=== PATIENT | male | born 1945 | race Caucasian/White ===

== ENCOUNTER → 2019-09-10 08:53 | Outpatient (CLI) | payer MEDICARE, OTHER, SELFPAY ==
[2019-09-11 23:16] LABS: COVID19 Sendout Not Detected (Not Detect)
== END ==
PROVIDERS: PCP Family Medicine; Visit Provider Physician Assistant
DX: Z01.812 Encounter for preprocedural laboratory examination (principal)
CPT/HCPCS: 87635

== ENCOUNTER 2019-09-13 14:48 | Day surgery (SDC) | payer MEDICARE, OTHER, SELFPAY ==
--- NOTE | 2019-09-13 | PATH_ITS ---
[facility] Accession Number: [id number] . 01 Material submitted: . sigmoid colon - SIGMOID COLON POLYP . 01 Clinical history: . SIGMOID COLON POLYP 2MM X2 . 02 Diagnosis: Sigmoid Colon, Polyp, Biopsy: Tubular adenoma. Hyperplastic polyp. MRV 09/17/2019 0920 Local . 02 Electronically signed: . Sejal Sood MD, Pathologist NPI- [id number] . 01 Gross description: . SIGMOID COLON POLYP: Received in formalin are 2 fragment(s) of deshpande, soft tissue measuring 0.3 x 0.3 x 0.2 cm to 0.3 x 0.3 x 0.2 cm submitted entirely in 1 cassette(s) /QBJ 09/14/2019 0852 Local . 02 Pathologist provided ICD-10: D12.8 . 02 CPT . 436360 Performed at: 01 [facility] [address] [facility], [place], [place] [id number] MD Chacho Branch MD Phone: [phone] Performed at: 02 [facility] [address] [place], [place] [id number] MD Sejal Sood MD Phone: [phone]
--- NOTE | 2019-09-13 12:18 | PM.HP.1 ---
History of Present Illness History of Present Illness Date Patient Seen: 09/13/19 Chief complaint: SDC Narrative: 73 year old male comes in today for consideration of a screening colonoscopy. There have been no lower GI symptoms suggesting disease such as change in bowel habits, bleeding, abdominal pain or anemia. There's been no family history of colon cancer or colon polyps. Overall health issues have been stable, including no major cardiac events for at least 6 weeks. 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 Patient History Family & Social History Family History (Updated 08/06/15 @ 00:00 by CLEMENT Gallo) Brother Diabetes mellitus Father Diabetes mellitus Meds Home Medications and Allergies Home Medications Medication Instructions Recorded Confirmed Type metformin 500 mg tablet,extended See Rx Instructions PO SEE 02/06/18 09/13/19 Rx release 24 hr INSTRUCTIONS #90 tab lisinopril 20 mg PO QDAY #90 tab 03/05/18 09/13/19 Rx atorvastatin 10 mg PO DAILY 09/13/19 09/13/19 History Allergies Allergy/AdvReac Type Severity Reaction Status Date / Time No Known Drug Allergies Allergy Unverified 09/10/19 08:51 Review of Systems Review of Systems ROS: Yes All systems reviewed with the patient and are negative except as otherwise documented Exam Narrative Exam Narrative: GENERAL: Alert and oriented, appearing stated age and in no acute distress. HEENT: Head normocephalic/atraumatic. Pupils equal, round, and reactive to light and accomodation. Extraocular muscles intact. Tympanic membranes clear. Nasal mucosa moist, septum midline. Oral mucosa moist, no lesions. Neck soft and supple, no lymphadenopathy. LUNGS: Clear to ausculation bilaterally, no wheezes, rhonchi or rales. CV: Normal S1 and S2 with regular rate and rhythm, no audible murmurs, rubs or gallops. ABDOMEN: Soft, non-tender, non-distended, no organomegaly. Positive bowel sounds. EXTREMITIES: No clubbing, cyanosis, or edema. NEURO: Cranial nerves II through XII grossly intact, no focal deficits. PSYCH: Alert and oriented x 3. SKIN: No concerning lesions. Assessment & Plan Assessment & Plan narrative: 1. Screening for colon cancer Plan for colonoscopy. The nature and character of the procedure as well as anticipated results were discussed. The possibility of not completing the procedure was also discussed. Possible complications including aspiration pneumonia, bleeding, perforation and reaction to medications either for sedation or preparation and missed lesions were discussed. Questions were answered and proceeding to the colonoscopy was elected. Informed consent signed. I sincerely appreciate the referral allowing me to participate in this patient's care. Please contact me with any questions or concerns.
--- NOTE | 2019-09-13 12:21 | P.OP.ENDO_ITS ---
Operative Date/Time/Diagnoses Date of procedure: 09/13/19 Time of procedure: 16:28 Pre-op diagnosis: 1. Screening for colon cancer Post-op diagnosis: other (1. Sigmoid polyp x2, 2 mm, removed with cold biopsy forceps) Procedure & Clinicians Study performed: Colonoscopy Same procedure as scheduled: Yes Indications: Screening for colon cancer Surgeon: Elizabeth Conroy Procedure Notes SCOAP/Timeout: 16:27 Procedure in detail: ENDOSCOPIST: Elizabeth Conroy MD Sedation RN: Tyesha Barksdale RN Sedation start time: 4:20 p.m. Sedation end time: 4:57 p.m. PROCEDURE: Colonoscopy with biopsy, cold INDICATIONS: 1. Screening for colon cancer MEDICATION: Levsin 0.125 mg sublingual, incremental doses of Versed and fentanyl until appropriate level sedation achieved. ASA CLASS: 2 CECAL WITHDRAWAL TIME: 13 minutes COMPLICATIONS: None. EXTENT OF PROCEDURE: Cecum. QUALITY OF PREP: Good with portions of liquid stool. PROCEDURE: Prior to insertion of the colonoscope, a digital rectal examination was acco mplished with circumferential palpation of the distal rectal mucosa without significant findings being noted. The high-definition colonoscope was passed into the rectum in the usual fashion and advanced over to the cecum without difficulty. The ileocecal valve, appendiceal stoma, and medial wall all could be inspected and no abnormalities were seen. ASCENDING COLON: As the colonoscope was withdrawn, care was taken to expose and inspect the haustral folds and no abnormalities were seen. HEPATIC FLEXURE: Normal no polyps, diverticula or other abnormalities. TRANSVERSE COLON: Normal no polyps, diverticula or other abnormalities. DESCENDING COLON: Normal no polyps, diverticula or other abnormalities. SIGMOID COLON: 2 small polyps were seen, 2 mm in size, removed with cold biopsy forceps. Otherwise, normal, no diverticula or other abnormalities. RECTUM: Normal. J maneuver was produced. There was no significant perianal disease. The J maneuver was broken. The remainder of the rectum was inspected and there was no external hemorrhoid disease. The scope was withdrawn. IMPRESSION: 1. Sigmoid polyps x2, 2 mm, removed with cold biopsy forceps PLAN: 1. Follow-up in clinic status post pathology results. The possibility of a missed lesion including a malignancy has been discussed with the patient previously. Potential alarm symptoms have been discussed and should be reported immediately. Complications: none Post-procedure Recommendations: Will call with biopsy results Follow up: weeks (2) Disposition: PACU
[2019-09-13] MEDS: HYOSCYAMINE 0.125 MG TABLET PO (14:59)
[2019-09-13] MEDS: LACTATED RINGERS 1,000 ML 200 ML IV (14:59)
[2019-09-13 15:05] VITALS: BP 138/85; PULSE 76; RESP 20; TEMP 36.6; O2SAT 98; BMI 23.8
[2019-09-13 17:00] VITALS: BP 122/84; PULSE 68; RESP 14; TEMP 36.3; O2SAT 95
[2019-09-13] MEDS: fentaNYL 250 MCG/5 ML INJ IV (17:00)
[2019-09-13] MEDS: MIDAZOLAM 5 MG/5 ML VIAL IV (17:00)
[2019-09-13 17:05] VITALS: BP 122/89; PULSE 69; RESP 15; O2SAT 96
[2019-09-13 17:20] VITALS: BP 125/83; PULSE 60; RESP 16; TEMP 36.7; O2SAT 95
== END 2019-09-13 17:22 | disposition home or self-care (01) ==
PROVIDERS: PCP Internal Medicine; Referring Provider Student in an Organized Health Care Education/Training Program; Visit Provider Student in an Organized Health Care Education/Training Program
PROC: 0DJD8ZZ Inspection of Lower Intestinal Tract, Via Natural or Artificial Opening Endoscopic (ICD-10-PCS; CPT 45378; principal; 2019-09-13 16:00)
DX: Z12.11 Encounter for screening for malignant neoplasm of colon (principal); E11.9 Type 2 diabetes mellitus without complications; Z79.84 Long term (current) use of oral hypoglycemic drugs; E78.5 Hyperlipidemia, unspecified; I10 Essential (primary) hypertension; J44.9 Chronic obstructive pulmonary disease, unspecified; D12.5 Benign neoplasm of sigmoid colon
CPT/HCPCS: 45380; J2250; J3010

== ENCOUNTER 2019-10-21 14:48 | Emergency (ER) | payer MEDICARE, OTHER, SELFPAY ==
[2019-10-21] VITALS (7 sets, daily range): BP systolic 131–144; BP diastolic 80–84; PULSE 64–72; RESP 16; TEMP 36.4; O2SAT 97–99; BMI 23.7
--- NOTE | 2019-10-21 15:41 | PC.NURSE ---
Patient comes into the ED with complaints of pain in his right inguinal space. He claims that the pain worsens when he is standing or sitting in his car. He says that it goes away when he lays down.
--- NOTE | 2019-10-21 16:08 | ED_ITS ---
HPI - Abdominal Pain General Chief Complaint: Abdominal Pain Stated Complaint: Hernia, Incredible Pain Time Seen by Provider: 10/21/19 15:57 Source: patient Mode of arrival: Ambulatory History of Present Illness HPI narrative: 73-year-old gentleman with history of type 2 diabetes, hypertension, hyperlipidemia complaining of right inguinal area pain. About a month ago he was lifting some heavy would felt tight tearing/pulling feeling in the right inguinal area that seemed to resolve spontaneously. With lifting or Valsalva maneuver she noted some irritation to the area. Over the last weeks it has gotten progressively worse to the point where it is bothering him every time he sits down and is easily relieved by simply laying down and applying pressure to the inguinal crease. He has had normal bowel movements, no blood in his sto ols, no fevers, no abdominal pain, Related Data Home Medications Medication Instructions Recorded Confirmed atorvastatin 10 mg PO DAILY 09/13/19 09/13/19 Previous Rx's Medication Instructions Recorded metformin 500 mg tablet,extended See Rx Instructions PO SEE 02/06/18 release 24 hr INSTRUCTIONS #90 tab lisinopril 20 mg PO QDAY #90 tab 03/05/18 Allergies Allergy/AdvReac Type Severity Reaction Status Date / Time No Known Drug Allergies Allergy Unverified 10/21/19 14:55 Review of Systems Review of Systems Narrative: Pertinent positive and negative findings as per HPI Remainder of review of systems is otherwise unremarkable for Constitutional: Fevers, chills, weakness ENT: No sore throat, neck pain, ear pain CV: Chest pain, palpitations, dyspnea on exertion Respiratory: Cough, wheeze, dyspnea GI: Nausea, vomiting, diarrhea, change in bowel habits, black or bloody stools : Dysuria, hematuria, flank pain Patient History Medical History Essential hypertension (11/22/16) History of detached retina repair (08/06/15) History of right cataract extraction (08/06/15) Mixed hyperlipidemia (11/22/16) Type 2 diabetes mellitus with hyperglycemia, without long-term current use of insulin (08/06/15) Family History Brother Diabetes mellitus Father Diabetes mellitus Social History household members: spouse Smoking Status: Never smoker alcohol intake: never Smoking Status: Never smoker Substance Use Type: marijuana Exam Narrative Exam Narrative: General: Alert appropriate in no acute distress Respiratory: Able to speak in full sentences, no obvious respiratory distress Skin: No obvious rashes, warm and dry Neurologic: Grossly intact no obvious asymmetries or abnormalities Psych, appropriate insight and affect, cooperative Genital: Normal circumcised penis no tenderness in the testicles no left-sided abnormalities or hernia. Mild right-sided tenderness over the doing inguinal ring with small deficit noted no incarcerated hernia. Initial Vital Signs Initial Vital Signs: Vital Signs Temperature 97.6 F 10/21/19 14:51 Pulse Rate 70 10/21/19 14:51 Respiratory Rate 16 10/21/19 14:51 Pulse Oximetry 97 10/21/19 14:51 Course Vital Signs Vital signs: Vital Signs - 8 hr 10/21/19 14:51 10/21/19 15:22 10/21/19 15:23 Temperature 97.6 F Pulse Rate 70 65 Respiratory Rate 16 Blood Pressure 144/84 H Pulse Oximetry 97 99 97 10/21/19 15:30 10/21/19 16:00 Temperature Pulse Rate 72 64 Respiratory Rate Blood Pressure Pulse Oximetry 97 99 MDM - Abdominal Pain MDM Narrative Medical decision making narrative: 73-year-old gentleman with right inguinal hernia, increasing tenderness but no incarceration and is able to be easily reduced if he lays down. Will refer him to [facility] for outpatient evaluation and repair of his right inguinal hernia. He is safe for home discharge Discharge Plan Departure Patient Disposition: Home Clinical Impression: Inguinal hernia Qualifiers: Obstruction and gangrene presence: without obstruction or gangrene Laterality: unilateral Recurrence: non-recurrent Qualified Code(s): K40.90 - Unilateral inguinal hernia, without obstruction or gangrene, not specified as recurrent Instructions: DI for Groin Hernia Activity Restrictions/Additional Instructions: Thank you for coming in today. You have an inguinal hernia. It is absolutely okay to simply push on to get back in and stop the hurting. If you find that it is getting too painful, too annoying or your interested in definitive treatment for it then please follow-up with [facility] to talk about a hernia repair. Typically this surgery is fairly minor and often it is an outpatient procedure. I wish you the best Prescriptions: No Action metformin [Glucophage XR] 500 mg tablet extended release 24 hr See Rx Instructions PO SEE INSTRUCTIONS Qty: 90 RF: 2 lisinopril 20 mg tablet 20 mg PO QDAY Qty: 90 RF: 0 atorvastatin 10 mg tablet 10 mg PO DAILY RF: 0 Referrals: Daryl De Leon MD [Physician] - Firda Dorman ARNP [Primary Care Provider] -
== END 2019-10-21 16:37 | disposition home or self-care (01) ==
PROVIDERS: Emergency Provider Emergency Medicine; PCP Internal Medicine
DX: K40.90 Unilateral inguinal hernia, without obstruction or gangrene, not specified as recurrent (principal)
CPT/HCPCS: 99281

== ENCOUNTER → 2019-11-29 15:05 | Outpatient (CLI) | payer MEDICARE, OTHER, SELFPAY ==
[2019-12-01 13:06] LABS: COVID19 Sendout Not Detected
== END ==
PROVIDERS: PCP Internal Medicine; Visit Provider Physician Assistant
DX: Z11.59 Encounter for screening for other viral diseases (principal)
CPT/HCPCS: 87635

== ENCOUNTER 2019-12-02 13:34 | Day surgery (SDC) | payer MEDICARE, OTHER, SELFPAY ==
[2019-11-29 08:17] VITALS: BMI 23.1
[2019-12-02 13:50] VITALS: BP 126/75; PULSE 71; RESP 18; TEMP 37; O2SAT 97; BMI 23.7
[2019-12-02] MEDS: LACTATED RINGERS 1,000 ML 100 ML IV (14:01)
--- NOTE | 2019-12-02 14:53 | PM.PREOP ---
Pre-operative Note COVID-19 COVID-19 status: Negative Result date/Date tested (Pos, Neg/Pending): 11/29/19 Interval Note History & Physical reviewed/Exam performed by Physician: Yes Changes to H&P: No
[2019-12-02] MEDS: CEFAZOLIN 2 GM/100 ML FROZ.PIGGY IV (15:07)
[2019-12-02] MEDS: BUPIVACAINE 0.5% (PF) VIAL 30 ML INJ (15:27)
--- NOTE | 2019-12-02 16:23 | PM.OP.1 ---
Operative Date/Time/Diagnoses Date of procedure: 12/02/19 Time of procedure: 16:23 Pre-op diagnosis: Right inguinal hernia reducible Post-op diagnosis: same Procedure & Clinicians Procedure: Repair with plug and patch technique Same procedure as scheduled: Yes Indications: Symptomatic right inguinal hernia Surgeon: Daryl De Leon Click Yes if Unassisted: Yes Anesthesia Type: General Operative Notes Findings: Indirect hernia. Unusually muscular cremaster for age. Closure Type: primary Specimen(s): none sent Prosthetic devices, grafts, tissues, transplants, or devices: Mesh. Small plug. Estimated Blood Loss (mL): 5 Blood products transfused: none Procedure in detail: The patient was placed supine on the operating room table and underwent general LMA anesthesia. He was prepped and draped in the usual fashion. A transverse incision was made overlying the internal ring and carried down to the level of the external oblique. The external oblique was opened parallel with its fibers through the external ring. The cord structures were elevated. The cremaster was opened proximally and search made for an indirect sac. I the sac from surrounding tissues opened and found it had no contents. I suture ligated at the level the deep epigastric vessels. Distal portion was transected and removed.. A small plug was placed on defect created by this hernia sac. It was tacked into place with interrupted Ethibond sutures. The cremaster was closed over it with interrupted 3 0 Vicryl sutures. The floor was examined and was found to be intact.. A patch was placed across the floor and tacked at the pubic tubercle, the posterior lamella of the anterior rectus sheath, the ilioinguinal ligament, and superior lateral to the cord. The opening was modified as necessary to prevent tight constriction of the cord. Sutures of 0 Ethibond were used to secure the mesh. The external oblique was closed with a running 3 0 Vicryl. The subcu was closed with interrupted 4 0 Vicryl The skin was closed with a running 4 0 Vicryl subcuticular stitch and Steri-Strips. Dressing was applied, the patient was awakened, and the patient was taken to the recovery area in good condition. Complications: none Post-operative Condition: stable Disposition: PACU
[2019-12-02 16:28] VITALS: BP 125/81; PULSE 68; RESP 12; TEMP 36.3; O2SAT 98
[2019-12-02 16:33] VITALS: BP 95/71; PULSE 69; RESP 14; O2SAT 96
[2019-12-02 16:38] VITALS: BP 119/73; PULSE 65; RESP 16; O2SAT 96
--- NOTE | 2019-12-02 16:41 | SUR.PHASEI ---
Pt received to PACU at 1628. Oral airway in place. No further airway assistance required. Report received Dr Hernandes and Natan Kidd, RN. Oral airway removed at 1632 without diffficulty. Pt mostly sleeping. Denies pain.
[2019-12-02 16:43] VITALS: BP 118/77; PULSE 67; RESP 16; O2SAT 94
[2019-12-02 16:49] VITALS: BP 122/79; PULSE 70; RESP 12; TEMP 36.4; O2SAT 97
--- NOTE | 2019-12-02 17:20 | SUR.PHASEII ---
Pt states pain 04/29. Pt grunting with movement, grimacing noted. Pt denies need for pain med. Tylenol offered and refused. Pt states he does not need any pain medication.
== END 2019-12-02 17:10 | disposition home or self-care (01) ==
PROVIDERS: PCP Internal Medicine; Referring Provider Specialist; Visit Provider Specialist
PROC: (CPT 49505; principal; 2019-12-02 15:15)
DX: K40.90 Unilateral inguinal hernia, without obstruction or gangrene, not specified as recurrent (principal); I10 Essential (primary) hypertension; E78.5 Hyperlipidemia, unspecified; E11.9 Type 2 diabetes mellitus without complications; J44.9 Chronic obstructive pulmonary disease, unspecified; Z79.84 Long term (current) use of oral hypoglycemic drugs
CPT/HCPCS: 49505; C1781; J0690; J1100; J1885; J2250; J2405; J2704; J3010

== ENCOUNTER 2020-08-12 09:02 | Observation (INO) | payer MEDICARE, OTHER, SELFPAY ==
[2020-08-12] VITALS (11 sets, daily range): BP systolic 105–179; BP diastolic 67–87; PULSE 57–64; RESP 13–16; TEMP 36.6–37.1; O2SAT 95–98; BMI 23.1
--- NOTE | 2020-08-12 09:13 | ED_ITS ---
HPI - Chest Pain General Chief Complaint: Shortness of Breath/Dyspnea Stated Complaint: trouble breathing Time Seen by Provider: 08/12/20 09:04 Source: patient Mode of arrival: Ambulatory Limitations: no limitations History of Present Illness HPI narrative: The patient is a 74-year-old male with history of hypertension her diabetes presenting with chest discomfort which started after he ate steak last night. He says this has happened to him before but he can usually get it to go down. He is able to sleep last night. He is able to manage his secretions however sometimes he does spit up. This morning he drinks coffee and that he vomited. he decided he needed to come to the emergency department. He has some shortness of breath and chest pain were feels like this steak is stuck. complaint: chest pain Onset (ago): hour(s) Duration: constant Related Data Home Medications Medication Instructions Recorded Confirmed atorvastatin 10 mg PO DAILY 09/13/19 12/17/19 Spiriva Respimat 2 puff INHALATION QAM 12/02/19 12/17/19 Previous Rx's Medication Instructions Recorded metformin 500 mg tablet,extended See Rx Instructions PO SEE 02/06/18 release 24 hr INSTRUCTIONS #90 tab lisinopril 20 mg PO QDAY #90 tab 03/05/18 oxycodone-acetaminophen [Percocet] See Rx Instructions .ROUTE 12/02/19 .COMPLEX PRN #14 tab Allergies Allergy/AdvReac Type Severity Reaction Status Date / Time No Known Drug Allergies Allergy Verified 08/12/20 09:10 Review of Systems Review of Systems Narrative: GENERAL: Denies chills, fatigue, malaise, fever, sweats, travel HEENT: + difficulty swallowing, see HPI RESPIRATORY: Denies dyspnea, cough, wheezing, hemoptysis, sputum. CARDIOVASCULAR: See HPI GASTROINTESTINAL: Denies nausea, vomiting, abdominal pain, diarrhea, constipation, melena. : Denies dysuria, frequency, incontinence, hematuria, urinary retention, flank pain. MUSCULOSKELETAL: Denies weakness, joint pain, or bony pain SKIN: No rash, no erythema, no pruritus NEUROLOGIC: Denies weakness, dizziness, headache, numbness, change in speech, confusion PSYCHIATRIC: No concerning psychosocial issues. 12 point review of systems is negative except for those stated above and HPI Patient History Medical History (Updated 08/12/20 @ 10:55 by Daryl De Leon MD) COPD (chronic obstructive pulmonary disease) Emphysema lung Essential hypertension (11/22/16) Former smoker History of detached retina repair (08/06/15) History of right cataract extraction (08/06/15) Mixed hyperlipidemia (11/22/16) Type 2 diabetes mellitus with hyperglycemia, without long-term current use of insulin (08/06/15) Surgical History (Updated 08/12/20 @ 10:54 by Daryl De Leon MD) History of bowel resection Family History Brother Diabetes mellitus Father Diabetes mellitus Social History marital status: household members: spouse Smoking Status: Former smoker alcohol intake: never Smoking Status: Former smoker alcohol intake frequency: holidays/special occasions only Substance Use Type: marijuana Exam Initial Vital Signs Initial Vital Signs: Vital Signs Temperature 98.7 F 08/12/20 09:03 Pulse Rate 60 08/12/20 09:03 Respiratory Rate 16 08/12/20 09:03 Blood Pressure 179/87 H 08/12/20 09:03 Pulse Oximetry 98 08/12/20 09:03 GENERAL: Alert 74-year-old male appears well and in no acute distress. HEENT: Head atraumatic,EOMI, pupils reactive, face symmetric, moist mucous membranes, managing secretions CARDIOVASCULAR: Regular rate and rhythm without murmurs, rubs or gallops. RESPIRATORY: Breath sounds equal bilaterally, no wheezes rales or rhonchi. ABDOMEN: Soft, nontender. Normoactive bowel sounds all 4 quadrants. No guarding or rebound. EXTREMITIES: Normal range of motion, no clubbing or edema. Neurovascularly intact NEUROLOGICAL: Alert and oriented x4.Normal gait and speech. SKIN: Warm, dry, no laceration, no petechiae, no rashes or lesions. Course Orders Ordered: Discontinued Medications Albuterol (Albuterol 2.5 Mg/3 Ml Neb (Adult)) 2.5 mg INH NOW PRN PRN Reason: Coughing, Wheezing, Dyspnea Fentanyl (Fentanyl 100 Mcg/2 Ml Inj) 0 mcg IV Q5M PRN PRN Reason: Pain, Moderate (4-6) Glucagon (Glucagon,Human Recombinant 1 Mg/Ml Vial) 1 mg IV NOW ONE Stop: 08/12/20 09:14 Last Admin: 08/12/20 09:22 Dose: 1 mg Documented by: DEANN Lactated Ringer's (Lactated Ringers) 1,000 mls @ 42 mls/hr IV NOW ONE Stop: 08/13/20 10:50 Last Admin: 08/12/20 11:02 Dose: 42 mls/hr Documented by: FLASH Metoclopramide HCl (Metoclopramide 10 Mg/2 Ml Inj) 10 mg IV NOW PRN PRN Reason: Nausea And Vomiting Ondansetron HCl (Ondansetron 4 Mg/2 Ml Inj) 4 mg IV NOW PRN PRN Reason: Nausea And Vomiting Pantoprazole Sodium (Pantoprazole 40 Mg Vial) 40 mg IV NOW ONE Stop: 08/12/20 09:14 Last Admin: 08/12/20 09:22 Dose: 40 mg Documented by: DEANN Vital Signs Vital signs: Vital Signs - 8 hr 08/12/20 09:03 Temperature 98.7 F Pulse Rate 60 Respiratory Rate 16 Blood Pressure 179/87 H Pulse Oximetry 98 MDM - Chest Pain Lab Data Attestation: I reviewed the patient's lab results. Result diagrams: 08/12/20 09:15 08/12/20 09:15 Labs: Lab Results 08/12/20 08/12/20 08/12/20 Range/Units 09:07 09:15 09:15 WBC 7.0 (4.5-11.0) X10^3/uL RBC 5.59 (4.5-5.9) X10^6/uL Hgb 15.8 (13.5-17.5) g/dL Hct 46.1 (41-53) % MCV 82.5 (80-100) fL MCH 28.3 (26-34) PG MCHC 34.3 (30-36) % RDW 12.9 (11.6-14.8) % Plt Count 143 L (150-400) X10^3/uL Neut % (Auto) 69.6 (50-75) % Lymph % (Auto) 19.9 L (25-40) % [place] % (Auto) 7.7 (3-14) % Eos % (Auto) 1.6 L (2-4) % Baso % (Auto) 1.2 (0-2) % Neut # (Auto) 4900 (0019-3402) /uL Lymph # (Auto) 1400 (4554-9458) /uL [place] # (Auto) 500 (0-900) /uL Eos # (Auto) 100 (0-450) /uL Baso # (Auto) 100 (0-100) /uL Sodium 139 (137-145) mmol/L Potassium 4.3 (3.4-5.1) mmol/L Chloride 106 (98-107) mmol/L Carbon Dioxide 27 (22-32) mmol/L BUN 27 H (9-20) mg/dL Creatinine 0.89 (0.66-1.25) mg/dL Estimated GFR > 60.0 (>60) mL/min BUN/Creatinine Ratio 30.3 H (6-22) Glucose 152 H (80-110) mg/dL Calcium 9.8 (8.4-10.2) mg/dL Total Bilirubin 0.7 (0.2-1.3) mg/dL AST 20 (17-59) IU/L ALT 21 (<50) IU/L Alkaline Phosphatase 62 (38-126) U/L Total Protein 7.1 (6.3-8.2) g/dL Albumin 4.2 (3.5-5.0) g/dL Globulin 2.9 (1.7-4.1) g/dL Albumin/Globulin Ratio 1.4 (1.0-2.8) SARS-CoV-2 (PCR) Negative (Negative) MDM Narrative Medical decision making narrative: Glucagon and Protonix along with shane shawn. Initially said he thought it may have moved however after drinking more he still feels that there is something in his throat. Dr. De Leon notified in in ED to see and evaluate patient. Patient going to OR for EGD Discharge Plan Departure Patient Disposition: Admitted to Surgery Clinical Impression: Esophageal foreign body Admit Date/Time: 08/12/20 10:22 Admit Provider: Daryl De Leon
--- NOTE | 2020-08-12 09:13 | PC.NURSE ---
Pt swallowed a large piece of steak last night and is now having difficulty taking PO. Pt managing secretions but states that it is getting worse. Pt does not appear in resp distress but states that it is making him feel SOB
[2020-08-12] MEDS: GLUCAGON,HUMAN RECOMBINANT 1 MG/ML VIAL IV (09:22)
[2020-08-12] MEDS: PANTOPRAZOLE 40 MG VIAL IV (09:22)
[2020-08-12 09:23] LABS: Add Manual Diff / Slide Review NO; Basophils Absolute Auto 100 /uL (0-100); Basophils Percent Auto 1.2 % (0-2); Eosinophils Absolute Auto 100 /uL (0-450); Eosinophils Percent Auto 1.6 % (2-4); Hematocrit 46.1 % (41-53); Hemoglobin 15.8 g/dL (13.5-17.5); Lymphocytes Absolute Auto 1400 /uL (1100-4500); Lymphocytes Percent Auto 19.9 % (25-40); Mean Corpuscular HGB Conc 34.3 % (30-36); Mean Corpuscular Hemoglobin 28.3 PG (26-34); Mean Corpuscular Volume 82.5 fL (80-100); Monocytes Absolute Auto 500 /uL (0-900); Monocytes Percent Auto 7.7 % (3-14); Neutrophils Absolute Auto 4900 /uL (1500-7000); Neutrophils Percent Auto 69.6 % (50-75); Platelet Count 143 X10^3/uL (150-400); Red Blood Cell Count 5.59 X10^6/uL (4.5-5.9); Red Cell Distribution Width 12.9 % (11.6-14.8)
[2020-08-12 09:32] LABS: Alanine Aminotransferase 21 IU/L (<50); Albumin 4.2 g/dL (3.5-5.0); Albumin Globulin Ratio 1.4 (1.0-2.8); Alkaline Phosphatase 62 U/L (38-126); Aspartate Aminotransferase 20 IU/L (17-59); BUN Creatinine Ratio 30.3 (6-22); Bilirubin Total 0.7 mg/dL (0.2-1.3); Blood Urea Nitrogen 27 mg/dL (9-20); Calcium 9.8 mg/dL (8.4-10.2); Carbon Dioxide 27 mmol/L (22-32); Chloride 106 mmol/L (98-107); Estimated Glomerular Filt Rate > 60.0 mL/min (>60); Globulin 2.9 g/dL (1.7-4.1); Glucose 152 mg/dL (80-110); HEMOLYSIS < 15 (0-50); Potassium 4.3 mmol/L (3.4-5.1); Sodium 139 mmol/L (137-145); Total Protein 7.1 g/dL (6.3-8.2)
[2020-08-12 10:32] LABS: COVID19 -Nasal RAPID Negative (Negative)
--- NOTE | 2020-08-12 10:51 | PM.HP.1 ---
History of Present Illness History of Present Illness Date Patient Seen: 08/12/20 Time Patient Seen: 10:22 Chief complaint: trouble breathing Narrative: Patient is gentleman was eating last night and felt like food gets stuck in his esophagus. He could not eat or drink anything. He woke up this morning and try to take a sip of coffee and it did not go anywhere. He came into the emergency room. Patient has had this happen before. He suffers from diabetes and hypertension both of which are controlled with medication. Patient History Medical History (Updated 08/12/20 @ 10:55 by Daryl De Leon MD) COPD (chronic obstructive pulmonary disease) Emphysema lung Essential hypertension (11/22/16) Former smoker History of detached retina repair (08/06/15) History of right cataract extraction (08/06/15) Mixed hyperlipidemia (11/22/16) Type 2 diabetes mellitus with hyperglycemia, without long-term current use of insulin (08/06/15) Surgical History (Updated 08/12/20 @ 10:54 by Daryl De Leon MD) History of bowel resection Family & Social History Family History Brother Diabetes mellitus Father Diabetes mellitus Social History: household members spouse Safety & Behavioral: Feels Safe in Current Yes Environment Been Physically Hurt or No Threatened By a Person Tobacco & Substance use: Tobacco type cigarettes Smoking Status Former smoker alcohol intake never alcohol intake frequency holiday/special occasion Substance Use Type marijuana Meds Home Medications and Allergies Home Medications Medication Instructions Recorded Confirmed Type metformin 500 mg tablet,extended See Rx Instructions PO SEE 02/06/18 12/17/19 Rx release 24 hr INSTRUCTIONS #90 tab lisinopril 20 mg PO QDAY #90 tab 03/05/18 12/17/19 Rx atorvastatin 10 mg PO DAILY 09/13/19 12/17/19 History Spiriva Respimat 2 puff INHALATION QAM 12/02/19 12/17/19 History oxycodone-acetaminophen [Percocet] See Rx Instructions .ROUTE 12/02/19 12/17/19 Rx .COMPLEX PRN #14 tab Allergies Allergy/AdvReac Type Severity Reaction Status Date / Time No Known Drug Allergies Allergy Verified 08/12/20 09:10 Review of Systems Review of Systems ROS: Yes All systems reviewed with the patient and are negative except as otherwise documented Exam Vital Signs (past 8 hours): - 08/12/20 09:03 Temperature 98.7 F Pulse Rate 60 Respiratory Rate 16 Blood Pressure 179/87 H Pulse Oximetry 98 Oxygen Delivery Method Room Air Objective Labs Result Diagrams: 08/12/20 09:15 08/12/20 09:15 Labs: Laboratory Results - last 24 hr 08/12/20 08/12/20 08/12/20 09:07 09:15 09:15 WBC 7.0 RBC 5.59 Hgb 15.8 Hct 46.1 MCV 82.5 MCH 28.3 MCHC 34.3 RDW 12.9 Plt Count 143 L Neut % (Auto) 69.6 Lymph % (Auto) 19.9 L [place] % (Auto) 7.7 Eos % (Auto) 1.6 L Baso % (Auto) 1.2 Neut # (Auto) 4900 Lymph # (Auto) 1400 [place] # (Auto) 500 Eos # (Auto) 100 Baso # (Auto) 100 Sodium 139 Potassium 4.3 Chloride 106 Carbon Dioxide 27 BUN 27 H Creatinine 0.89 Estimated GFR > 60.0 BUN/Creatinine Ratio 30.3 H Glucose 152 H Calcium 9.8 Total Bilirubin 0.7 AST 20 ALT 21 Alkaline Phosphatase 62 Total Protein 7.1 Albumin 4.2 Globulin 2.9 Albumin/Globulin Ratio 1.4 SARS-CoV-2 (PCR) Negative Assessment & Plan Assessment and plan (1) Esophageal foreign body: Problem details: Patient with an obstructed esophagus from food. Will perform an EGD and try to remove/dislodge this impacted food. I have discussed the procedure with the patient. Risks of bleeding perforation aspiration were discussed. He understands that we will protect his airway by putting him to sleep inserting an ET tube. All questions were answered. Status: Acute
--- NOTE | 2020-08-12 10:56 | PM.PREOP ---
Pre-operative Note COVID-19 COVID-19 status: Negative Result date/Date tested (Pos, Neg/Pending): 08/12/20 Interval Note History & Physical reviewed/Exam performed by Physician: Yes Changes to H&P: No
[2020-08-12] MEDS: LACTATED RINGERS 1,000 ML 42 ML IV (11:02)
--- NOTE | 2020-08-12 11:09 | SUR.HOLD ---
1109 to OR , no resp or other distress. Pt A&O, talking, laughing.
--- NOTE | 2020-08-12 11:22 | SUR.OPER ---
DENTURES AND GLASSES IN LABELED CONTAINERS TO PACU WITH PATIENT.
--- NOTE | 2020-08-12 12:02 | PM.HP.1 ---
History of Present Illness History of Present Illness Chief complaint: trouble breathing Narrative: Patient is gentleman was eating last night and felt like food gets stuck in his esophagus. He could not eat or drink anything. He woke up this morning and try to take a sip of coffee and it did not go anywhere. He came into the emergency room. Patient has had this happen before. He suffers from diabetes and hypertension both of which are controlled with medication. Patient History Medical History (Updated 08/12/20 @ 10:55 by Daryl De Leon MD) COPD (chronic obstructive pulmonary disease) Emphysema lung Essential hypertension (11/22/16) Former smoker History of detached retina repair (08/06/15) History of right cataract extraction (08/06/15) Mixed hyperlipidemia (11/22/16) Type 2 diabetes mellitus with hyperglycemia, without long-term current use of insulin (08/06/15) Surgical History (Updated 08/12/20 @ 10:54 by Daryl De Leon MD) History of bowel resection Family & Social History Family History Brother Diabetes mellitus Father Diabetes mellitus Social History: household members spouse Safety & Behavioral: Feels Safe in Current Yes Environment Been Physically Hurt or No Threatened By a Person Tobacco & Substance use: Tobacco type cigarettes Smoking Status Former smoker alcohol intake never alcohol intake frequency holiday/special occasion Substance Use Type marijuana Meds Home Medications and Allergies Home Medications Medication Instructions Recorded Confirmed Type metformin 500 mg tablet,extended See Rx Instructions PO SEE 02/06/18 12/17/19 Rx release 24 hr INSTRUCTIONS #90 tab lisinopril 20 mg PO QDAY #90 tab 03/05/18 12/17/19 Rx atorvastatin 10 mg PO DAILY 09/13/19 12/17/19 History Spiriva Respimat 2 puff INHALATION QAM 12/02/19 12/17/19 History oxycodone-acetaminophen [Percocet] See Rx Instructions .ROUTE 12/02/19 12/17/19 Rx .COMPLEX PRN #14 tab Allergies Allergy/AdvReac Type Severity Reaction Status Date / Time No Known Drug Allergies Allergy Verified 08/12/20 09:10 Exam Vital Signs (past 8 hours): - 08/12/20 09:03 08/12/20 09:06 08/12/20 09:30 Temperature 98.7 F Pulse Rate 60 61 64 Respiratory Rate 16 Blood Pressure 179/87 H 179/87 H Pulse Oximetry 98 98 98 08/12/20 10:00 08/12/20 10:30 08/12/20 11:08 Temperature 98.2 F Pulse Rate 57 L 59 L 59 L Respiratory Rate 16 Blood Pressure 130/78 Pulse Oximetry 95 96 98 08/12/20 11:56 Temperature 98 F Pulse Rate 58 L Respiratory Rate 13 Blood Pressure 111/70 Pulse Oximetry 96 Oxygen Delivery Method Room Air Objective Labs Result Diagrams: 08/12/20 09:15 08/12/20 09:15 Labs: Laboratory Results - last 24 hr 08/12/20 08/12/20 08/12/20 09:07 09:15 09:15 WBC 7.0 RBC 5.59 Hgb 15.8 Hct 46.1 MCV 82.5 MCH 28.3 MCHC 34.3 RDW 12.9 Plt Count 143 L Neut % (Auto) 69.6 Lymph % (Auto) 19.9 L [place] % (Auto) 7.7 Eos % (Auto) 1.6 L Baso % (Auto) 1.2 Neut # (Auto) 4900 Lymph # (Auto) 1400 [place] # (Auto) 500 Eos # (Auto) 100 Baso # (Auto) 100 Sodium 139 Potassium 4.3 Chloride 106 Carbon Dioxide 27 BUN 27 H Creatinine 0.89 Estimated GFR > 60.0 BUN/Creatinine Ratio 30.3 H Glucose 152 H Calcium 9.8 Total Bilirubin 0.7 AST 20 ALT 21 Alkaline Phosphatase 62 Total Protein 7.1 Albumin 4.2 Globulin 2.9 Albumin/Globulin Ratio 1.4 SARS-CoV-2 (PCR) Negative
--- NOTE | 2020-08-12 12:03 | P.OP.ENDO_ITS ---
Operative Date/Time/Diagnoses Date of procedure: 08/12/20 Time of procedure: 12:03 Pre-op diagnosis: Obstruction of the esophagus from food Post-op diagnosis: same Procedure & Clinicians Study performed: EGD and removal of obstructing food bolus Same procedure as scheduled: Yes Indications: Patient unable to handle p.o. since last evening when he ate a large piece of meat. Surgeon: Daryl De Leon Procedure Notes SCOAP/Timeout: Performed Procedure in detail: Patient is placed supine on the operating room table underwent general endotracheal anesthesia to protect his airway. Scope was inserted advanced under direct vision in the esophagus. I readily identified a near obstructing foreign body (meat) spanning about 10 or more cm in the esophagus. The distal esophagus was quite inflamed and swollen. It was not n ecessarily narrowed however. I inserted a snared began to chopped this meat up. I then brought a attempted to bring it up multiple times by pulling out the endoscope along with the snare. Pieces were unfortunately quite large and I had to step it down quite a bit in order to get pieces by the ET tube. Ultimately I removed 2 very large pieces of meat in this fashion and multiple smaller pieces. I was able to then to push any remaining pieces down into the stomach. The esophagus was completely cleared. I examined the stomach which was normal except for hiatal hernia noted on retroflexed view. Pyloric channel was patent and the duodenal was normal of the 4th part. Scope was removed. Patient tolerated the procedure well. He was awakened extubated taken to recovery room good condition. There was no evidence of aspiration. Scope withdrawal time: Not applicable Sedation minutes: 0 (General anesthesia used to protect airway) Findings: other findings (Very large piece of meat obstructing the esophagus) Specimen(s): none sent Complications: none Post-procedure Plan for aftercare: Chew food well. Follow up: as needed Disposition: PACU
== END 2020-08-12 12:39 | disposition home or self-care (01) ==
LOC: ED 10:21 → AC 10:22
PROVIDERS: Admitting Provider Specialist; Emergency Provider Emergency Medicine; PCP Internal Medicine; Referring Provider Emergency Medicine; Visit Provider Specialist
PROC: 0DJ08ZZ Inspection of Upper Intestinal Tract, Via Natural or Artificial Opening Endoscopic (ICD-10-PCS; CPT 43235; principal; 2020-08-12 11:30)
DX: T18.128A Food in esophagus causing other injury, initial encounter (principal); R06.02 Shortness of breath; I10 Essential (primary) hypertension; E11.9 Type 2 diabetes mellitus without complications; J44.9 Chronic obstructive pulmonary disease, unspecified; Z87.891 Personal history of nicotine dependence; E78.2 Mixed hyperlipidemia; Z79.84 Long term (current) use of oral hypoglycemic drugs; Z20.822 Contact with and (suspected) exposure to COVID-19
CPT/HCPCS: 43247; 36415; 80053; 85025; 87635; 93005; 93010; 96374; 96375; 99219; 99284; C9803; G0378; C9113; J0330; J1610; J2704; J3010

== ENCOUNTER 2020-08-27 14:20 | Emergency (ER) | payer MEDICARE, OTHER, SELFPAY ==
[2020-08-27 14:38] VITALS: BP 132/76; PULSE 64; RESP 14; TEMP 36.2; O2SAT 99
--- NOTE | 2020-08-27 14:44 | DI.CT.S_ITS ---
PROCEDURE: CT HEAD/BRAIN WO CON INDICATIONS: dizzy, started @ 1200. resolved, only w/ movement TECHNIQUE: Noncontrast 4.5 mm thick angled axial sections acquired from the foramen magnum to the vertex, with coronal and sagittal reformats. For radiation dose reduction, the following was used: automated exposure control, adjustment of mA and/or kV according to patient size. COMPARISON: None. FINDINGS: Image quality: Excellent. CSF spaces: Basal cisterns are patent. No extra-axial fluid collections. Ventricles are normal in size and shape. Brain: There is no acute intracranial hemorrhage. No findings of mass effect or midline shift. [place]-white matter differentiation is maintained. Of note, the left V4 segment appears dominant with a diminutive right vertebral artery. There is a somewhat hyperdense appearance of the left V4 segment and to the basilar artery approximately, potentially due to artifact due to the dense adjacent bone, although atherosclerosis or even a component of intraluminal thrombus could cause a similar appearance. There is a suggestion of a small left pontine hypodensity which could potentially represent a subacute or remote area of prior ischemia. Skull and face: Calvarium and visualized facial bones are intact, without suspicious lesions. Sinuses: Visualized sinuses and mastoids are clear. IMPRESSION: No acute intracranial abnormality demonstrated definitively. Questionable hyperdense appearance of the left V4 segment and left basilar artery, raising some concern for either significant atherosclerotic disease or potentially intraluminal thrombus, which would be consistent with a history of dizziness. Subtle hypodensity in the left garrison may be artifactual as well, although a remote or subacute ischemic focus could appear similar. In light of these findings, consider a CT angiogram and/or MRI of the brain for further evaluation. Dictated by: Rm Mendiola M.D. on 08/27/2020 at 14:55 Approved by: Rm Mendiola M.D. on 08/27/2020 at 14:58
[2020-08-27 15:30] LABS: Add Manual Diff / Slide Review NO; Basophils Absolute Auto 100 /uL (0-100); Basophils Percent Auto 0.6 % (0-2); Eosinophils Absolute Auto 0 /uL (0-450); Eosinophils Percent Auto 0.4 % (2-4); Hematocrit 47.2 % (41-53); Hemoglobin 15.9 g/dL (13.5-17.5); Lymphocytes Absolute Auto 1100 /uL (1100-4500); Lymphocytes Percent Auto 9.5 % (25-40); Mean Corpuscular HGB Conc 33.7 % (30-36); Mean Corpuscular Hemoglobin 27.9 PG (26-34); Mean Corpuscular Volume 82.7 fL (80-100); Monocytes Absolute Auto 500 /uL (0-900); Monocytes Percent Auto 3.9 % (3-14); Neutrophils Absolute Auto 10000 /uL (1500-7000); Neutrophils Percent Auto 85.6 % (50-75); Platelet Count 128 X10^3/uL (150-400); Red Blood Cell Count 5.71 X10^6/uL (4.5-5.9); Red Cell Distribution Width 13.2 % (11.6-14.8); White Blood Cell Count 11.7 X10^3/uL (4.5-11.0)
[2020-08-27 15:43] LABS: Alanine Aminotransferase 24 IU/L (<50); Albumin 4.3 g/dL (3.5-5.0); Albumin Globulin Ratio 1.5 (1.0-2.8); Alkaline Phosphatase 67 U/L (38-126); Aspartate Aminotransferase 22 IU/L (17-59); BUN Creatinine Ratio 24.2 (6-22); Bilirubin Total 0.7 mg/dL (0.2-1.3); Blood Urea Nitrogen 24 mg/dL (9-20); Calcium 9.8 mg/dL (8.4-10.2); Carbon Dioxide 29 mmol/L (22-32); Chloride 104 mmol/L (98-107); Estimated Glomerular Filt Rate > 60.0 mL/min (>60); Globulin 2.8 g/dL (1.7-4.1); Glucose 234 mg/dL (80-110); HEMOLYSIS < 15 (0-50); Potassium 4.9 mmol/L (3.4-5.1); Sodium 137 mmol/L (137-145); Total Protein 7.1 g/dL (6.3-8.2)
[2020-08-27 15:55] LABS: Troponin I < 0.012 ng/mL (0.01-0.034)
--- NOTE | 2020-08-27 16:38 | DI.CT.S_ITS ---
PROCEDURE: CT ANGIO HEAD AND NECK INDICATIONS: dizziness TECHNIQUE: Pre-contrast 4.5 mm thick sections acquired from the foramen magnum to the vertex. After the administration of intravenous contrast, 1 mm thick sections acquired from the aortic arch through the [place] of [place]. Post-contrast 4.5 mm thick sections then re-acquired from the foramen magnum to the vertex. 3-dimensional [id number] (MIP) and/or volume rendering reformats were acquired of the central intracranial vasculature and neck separately. COMPARISON: [facility], CT, CT HEAD/BRAIN WO CON, 08/27/2020, 14:51. FINDINGS: Image quality: Excellent. BRAIN: CSF spaces: Ventricles are normal in size and shape. Basal cisterns are patent. No extra-axial fluid collections. Brain: No midline shift. No intracranial bleeds or masses. [place]-white matter interface appears intact. Skull and face: Calvarium and facial bones appear intact, without suspicious lesions. Orbits appear normal. Sinuses: Sinuses and mastoids are clear. HEAD CT ANGIOGRAPHY: Anterior circulation: Intracranial internal carotid arteries are normal in size and flow. The flow within the paired anterior cerebral arteries is normal and symmetric. The flow within the middle cerebral arteries is normal and symmetric. The anterior communicating artery is seen. No aneurysms are seen. Posterior circulation: Visualized portions of the vertebral arteries demonstrate normal caliber, and join to form a normal appearing basilar artery. Flow within the posterior cerebral arteries is normal and symmetric. No aneurysms are seen. NECK CT ANGIOGRAPHY: Carotid system: The great vessels demonstrate a conventional anatomy as they arise from the aortic arch. The origins of the common carotid arteries appear patent. The common carotid arteries demonstrate normal caliber and courses. The bifurcation regions are both widely patent. The internal carotid arteries demonstrate normal calibers and courses. Posterior circulation: The origins of the vertebral arteries both appear widely patent. The more superior extracranial portions of both vertebral arteries also demonstrate normal courses and calibers. They join to form a normal appearing basilar artery. Soft tissues: Visualized neck soft tissues demonstrate no suspicious abnormalities. The upper chest demonstrates centrilobular emphysema. Bones: No suspicious bony lesions. Visualized cervical spine appears normally aligned. IMPRESSION: 1. Normal CTA of the head. 2. Normal CTA of the neck. 3. No acute intracranial abnormality. Any quantitative measurements of stenosis were performed using NASCET criteria. Dictated by: Ashish Ayala M.D. on 08/27/2020 at 17:31 Approved by: Ashish Ayala M.D. on 08/27/2020 at 17:43
--- NOTE | 2020-08-27 18:12 | ED_ITS ---
HPI - Dizziness General Chief Complaint: Dizziness Stated Complaint: real dizzy, can hardly walk straight, vomiting Time Seen by Provider: 08/27/20 14:26 Source: patient and family (daughter at bedside.) Mode of arrival: Ambulatory Limitations: no limitations History of Present Illness HPI Narrative: This is a 74-year-old male comes emergency department with complaint of dizziness. Patient states he has had some mild symptoms they have been gradually increasing. 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 And when he tried to walk he felt wobbly almost like he was drunk. He states his thoughts were clear, his speech was clear he was actually able to go in to the store and purchase items without any issue. 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 Patient states symptoms were worsened with rotation of his head to the left and right. Patient states that he ate a candy bar and that seemed to improve his symptoms significantly. Patient states his symptoms are almost totally gone. He denies any chest pain or pressure during these episodes. No abdominal pain, he has not had any diarrhea constipation, he has not had any urinary symptoms. He has chronic neuropathy in his feet but did not have any difficulty with movement of his extremities or new numbness, tingling or weakness. Patient not had similar symptoms in the past that he recalls. He states he was fishing for 8 hours daily for the past two days. He states he also had a bunch of ice cream for dinner and then did not have any breakfast and wondered if he had a drop in his sugar. He takes lisinopril for hypertension, metformin for diabetes but states he ran out of his prescription 4 days ago. 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 He did have an endoscopy week ago for esophageal food bolus which was impacted and removed. He does not smoke, he does not drink alcohol, he uses THC occasionally. His primary care is Frida Dorman. Related Data Home Medications Medication Instructions Recorded Confirmed atorvastatin 10 mg tablet 10 mg PO DAILY 09/13/19 12/17/19 tiotropium bromide 1.25 2 puff INHALATION QAM 12/02/19 12/17/19 mcg/actuation mist for inhalation (Spiriva Respimat) Previous Rx's Medication Instructions Recorded metformin 500 mg tablet,extended See Rx Instructions PO SEE 02/06/18 release 24 hr (Glucophage XR) INSTRUCTIONS #90 tab lisinopril 20 mg tablet 20 mg PO QDAY #90 tab 03/05/18 oxycodone-acetaminophen 5 mg-325 See Rx Instructions .ROUTE 12/01/20 mg tablet (Percocet) .COMPLEX PRN #14 tab metformin 500 mg tablet,extended 1,000 mg PO BID 7 Days #28 tab 08/27/20 release 24 hr Allergies Allergy/AdvReac Type Severity Reaction Status Date / Time No Known Drug Allergies Allergy Verified 08/12/20 09:10 Review of Systems Review of Systems ROS Unobtainable: All systems reviewed & are unremarkable except as noted in HPI and below Patient History Medical History COPD (chronic obstructive pulmonary disease) Emphysema lung Essential hypertension (11/22/16) Former smoker History of detached retina repair (08/06/15) History of right cataract extraction (08/06/15) Mixed hyperlipidemia (11/22/16) Type 2 diabetes mellitus with hyperglycemia, without long-term current use of insulin (08/06/15) Surgical History History of bowel resection Family History Brother Diabetes mellitus Father Diabetes mellitus Social History marital status: household members: spouse Smoking Status: Former smoker alcohol intake: never Smoking Status: Former smoker alcohol intake frequency: holidays/special occasions only Substance Use Type: marijuana Exam Narrative Exam Narrative: GEN: well nourished, well appearing male, alert and oriented x 3, patient appears to be in mild distress. HEENT: Atraumatic, pupils are equal round reactive to light, extraocular movements are intact, nares are clear. Throat is clear without any exudates, erythema, tonsillar enlargement or uvular deviation, no facial droop. HEART: Regular rate and rhythm without murmur, clicks, rubs. LUNGS:Lungs clear to auscultation, no wheezes, rales, crackles, chest moves symmetrically ABD:bowel sounds normal, soft, non-tender, no guarding, rebound, rigidity, no masses noted, no hepatosplenomegaly :No CVA tenderness MSCL: Non-tender, no muscle atrophy, muscles strength 5/5 upper and lower extremities, full range of motion, normal gait NEURO:CN 2-12 intact, sensation normal. finger nose finger test normal, heel sepulveda test normal, romberg normal SKIN: No rash or skin changes. Initial Vital Signs Initial Vital Signs: Vital Signs Temperature 97.1 F L 08/27/20 14:38 Pulse Rate 64 08/27/20 14:38 Respiratory Rate 14 08/27/20 14:38 Blood Pressure 132/76 08/27/20 14:38 Pulse Oximetry 99 08/27/20 14:38 Scores NIH Stroke Scale Level of Conciousness: Alert, keenly responsive Ask month/age: Answers both questions correctly. Open/close eyes, close hand: Performs both tasks correctly Best gaze horizontal: Normal Visual de [place]: No visual loss Facial palsy: Normal symetrical movement Left arm drift: No drift for full 10 sec Right arm drift: No drift for full 10 sec Left leg drift: No drift for full 5 sec Right leg drift: No drift for full 5 sec Limb ataxia: Absent Sensory on face/arms/legs: Normal, no sensory loss Best language: No aphasia, normal Dysarthria: Normal Extinction or inattention: No abnormality Total NIH Stroke scale score: 0 Course Orders Ordered: ED Orders 08/27/20 14:44 CT head/brain wo con Stat EKG-12 Lead Stat 08/27/20 15:22 Complete Blood Count AUTO DIFF Stat Comprehensive Metabolic Panel Stat Troponin I Stat 08/27/20 16:38 CT angio head and neck Stat Vital Signs Vital signs: Vital Signs - 8 hr 08/27/20 14:38 08/27/20 18:26 Temperature 97.1 F L Pulse Rate 64 71 Respiratory Rate 14 18 Blood Pressure 132/76 129/79 Pulse Oximetry 99 99 MDM - Dizziness Lab Data Result diagrams: 08/27/20 15:22 08/27/20 15:22 Labs: Lab Results 08/27/20 08/27/20 08/27/20 Range/Units 15:22 15:22 15:22 WBC 11.7 H (4.5-11.0) X10^3/uL RBC 5.71 (4.5-5.9) X10^6/uL Hgb 15.9 (13.5-17.5) g/dL Hct 47.2 (41-53) % MCV 82.7 (80-100) fL MCH 27.9 (26-34) PG MCHC 33.7 (30-36) % RDW 13.2 (11.6-14.8) % Plt Count 128 L (150-400) X10^3/uL Neut % (Auto) 85.6 H (50-75) % Lymph % (Auto) 9.5 L (25-40) % Rankin % (Auto) 3.9 (3-14) % Eos % (Auto) 0.4 L (2-4) % Baso % (Auto) 0.6 (0-2) % Neut # (Auto) 88138 H (1431-0080) /uL Lymph # (Auto) 1100 (5572-5784) /uL Rankin # (Auto) 500 (0-900) /uL Eos # (Auto) 0 (0-450) /uL Baso # (Auto) 100 (0-100) /uL Sodium 137 (137-145) mmol/L Potassium 4.9 (3.4-5.1) mmol/L Chloride 104 (98-107) mmol/L Carbon Dioxide 29 (22-32) mmol/L BUN 24 H (9-20) mg/dL Creatinine 0.99 (0.66-1.25) mg/dL Estimated GFR > 60.0 (>60) mL/min BUN/Creatinine Ratio 24.2 H (6-22) Glucose 234 H (80-110) mg/dL Calcium 9.8 (8.4-10.2) mg/dL Total Bilirubin 0.7 (0.2-1.3) mg/dL AST 22 (17-59) IU/L ALT 24 (<50) IU/L Alkaline Phosphatase 67 (38-126) U/L Troponin I < 0.012 (0.01-0.034) ng/mL Total Protein 7.1 (6.3-8.2) g/dL Albumin 4.3 (3.5-5.0) g/dL Globulin 2.8 (1.7-4.1) g/dL Albumin/Globulin Ratio 1.5 (1.0-2.8) Imaging Data CT scan - head: Radiologist's Impression: Eleuterio Garrido 74 M [address] [id number] Scan ReportSigned Patient: Eleuterio Garrido OMR#: [id number]: 7Acct:[id number]/Sex: 74 / MDate of Service: 08/27/20Loc: EDAccession Number: [id number] Procedure: CT head/brain wo con Ordering Provider: Nicki Forte D.O. PROCEDURE: CT HEAD/BRAIN WO CON INDICATIONS: dizzy, started @ 1200. resolved, only w/ movement TECHNIQUE: Noncontrast 4.5 mm thick angled axial sections acquired from the foramen magnum to the vertex, with coronal and sagittal reformats. For radiation dose reduction, the following was used: automated exposure control, adjustment of mA and/or kV according to patient size. COMPARISON: None. FINDINGS: Image quality: Excellent. CSF spaces: Basal cisterns are patent. No extra-axial fluid collections. Ventricles are normal in size and shape. Brain: There is no acute intracranial hemorrhage. No findings of mass effect or midline shift. [place]-white matter differentiation is maintained. Of note, the left V4 segment appears dominant with a diminutive right vertebral artery. There is a somewhat hyperdense appearance of the left V4 segment and to the basilar artery approximately, potentially due to artifact due to the dense adjacent bone, although atherosclerosis or even a component of intraluminal thrombus could cause a similar appearance. There is a suggestion of a small left pontine hypodensity which could potentially represent a subacute or remote area of prior ischemia. Skull and face: Calvarium and visualized facial bones are intact, without suspicious lesions. Sinuses: Visualized sinuses and mastoids are clear. IMPRESSION: No acute intracranial abnormality demonstrated definitively. Questionable hyperdense appearance of the left V4 segment and left basilar artery, raising some concern for either significant atherosclerotic disease or potentially intraluminal thrombus, which would be consistent with a history of dizziness. Subtle hypodensity in the left garrison may be artifactual as well, although a remote or subacute ischemic focus could appear similar. In light of these findings, consider a CT angiogram and/or MRI of the brain for further evaluation. Dictated by: Rm Mendiola M.D. on 08/27/2020 at 14:55 Approved by: Rm Mendiola M.D. on 08/27/2020 at 14:58 CTA - brain/neck: Radiologist's Impression: Eleuterio Garrido 74 M [address] [id number] Scan ReportSigned Patient: Eleuterio Garrido OMR#: [id number]: 1945cct:[id number]/Sex: 74 / MDate of Service: 08/27/20Loc: EDAccession Number: [id number] Procedure: CT angio head and neck Ordering Provider: Nicki Forte D.O. PROCEDURE: CT ANGIO HEAD AND NECK INDICATIONS: dizziness TECHNIQUE: Pre-contrast 4.5 mm thick sections acquired from the foramen magnum to the vertex. After the administration of intravenous contrast, 1 mm thick sections acquired from the aortic arch through the [place]. Post-contrast 4.5 mm thick sections then re- acquired from the foramen magnum to the vertex. 3-dimensional m ehpyyw-lcvplotkg-tkunughucb (MIP) and/or volume rendering reformats were acquired of the central intracranial vasculature and neck separately. COMPARISON: [facility], CT, CT HEAD/BRAIN WO CON, 08/27/2020, 14:51. FINDINGS: Image quality: Excellent. BRAIN: CSF spaces: Ventricles are normal in size and shape. Basal cisterns are patent. No extra-axial fluid collections. Brain: No midline shift. No intracranial bleeds or masses. [place]-white matter interface appears intact. Skull and face: Calvarium and facial bones appear intact, without suspicious lesions. Orbits appear normal. Sinuses: Sinuses and mastoids are clear. HEAD CT ANGIOGRAPHY: Anterior circulation: Intracranial internal carotid arteries are normal in size and flow. The flow within the paired anterior cerebral arteries is normal and symmetric. The flow within the middle cerebral arteries is normal and symmetric. The anterior communicating artery is seen. No aneurysms are seen. Posterior circulation: Visualized portions of the vertebral arteries demonstrate normal caliber, and join to form a normal appearing basilar artery. Flow within the posterior cerebral arteries is normal and symmetric. No aneurysms are seen. NECK CT ANGIOGRAPHY: Carotid system: The great vessels demonstrate a conventional anatomy as they arise from the aortic arch. The origins of the common carotid arteries appear patent. The common carotid arteries demonstrate normal caliber and courses. The bifurcation regions are both widely patent. The internal carotid arteries demonstrate normal calibers and courses. Posterior circulation: The origins of the vertebral arteries both appear widely patent. The more superior extracranial portions of both vertebral arteries also demonstrate normal courses and calibers. They join to form a normal appearing basilar artery. Soft tissues: Visualized neck soft tissues demonstrate no suspicious abnormalities. The upper chest demonstrates centrilobular emphysema. Bones: No suspicious bony lesions. Visualized cervical spine appears normally aligned. IMPRESSION: 1. Normal CTA of the head. 2. Normal CTA of the neck. 3. No acute intracranial abnormality. Any quantitative measurements of stenosis were performed using NASCET criteria. Dictated by: Ashish Ayala M.D. on 08/27/2020 at 17:31 Approved by: Ashish Ayala M.D. on 08/27/2020 at 17:43 ECG Data Attestation: I personally reviewed and interpreted this ECG as follows: Prior ECG tracings: available for review Interpretation: NSR, RBBB, rate 63, HI 198, QTC 435. No acute changes 08/12/20. [facility] Narrative Medical decision making narrative: This is a 74-year-old male who the emergency department with complaint of vertigo like symptoms. During evaluation patient states that symptoms have been slightly worsening over time and then became acutely severe today. Patient does have some neuropathy so he has chronic changes in his lower extremities but no acute changes other than vertigo. Patient's symptoms improved shortly after a candy bar but with his time frame seems hypo casing is a less likely cause. Patient's NIH is 0. His symptoms have almost completely resolved he has very mild sensation of being off balance. My suspicion for stroke is low, initial head CT was concerning and CT angiography was obtained.. Patient has been off his metformin and prescription was refilled today as he not had his medication for 4 days. Discharge Plan Departure Patient Disposition: Home Clinical Impression: Vertigo Instructions: DI for Vertigo Activity Restrictions/Additional Instructions: Follow-up with your physician in the next week. Call for an appointment. There are multiple causes for vertigo, acute stroke seems unlikely based on the progression of your symptoms today. Your CTA of your head and neck do not show any major changes. Your glucose is elevated at 234. Prescription for metformin was sent to [facility] in [place]. Please restart your medications. Please return for new or recurrent symptoms, severe headaches, vision changes, persistent vomiting, inability to ambulate safely, new numbness, tingling or weakness of her extremities or other new or concerning symptoms. Prescriptions: New metformin 500 mg tablet extended release 24 hr 1,000 mg PO BID 7 Days Qty: 28 RF: 0 No Action metformin [Glucophage XR] 500 mg tablet extended release 24 hr See Rx Instructions PO SEE INSTRUCTIONS Qty: 90 RF: 2 lisinopril 20 mg tablet 20 mg PO QDAY Qty: 90 RF: 0 atorvastatin 10 mg tablet 10 mg PO DAILY RF: 0 Spiriva Respimat 1.25 mcg/actuation Mist 2 puff INHALATION QAM RF: 0 oxycodone-acetaminophen [Percocet] 5-325 mg tablet See Rx Instructions .ROUTE .COMPLEX PRN (Reason: painful procedure) Qty: 14 RF: 0 Referrals: Godwin Broderick MD [Physician] - Frida Dorman ARNP [Primary Care Provider] -
[2020-08-27 18:26] VITALS: BP 129/79; PULSE 71; RESP 18; O2SAT 99
== END 2020-08-27 19:24 | disposition home or self-care (01) ==
PROVIDERS: Emergency Provider Emergency Medicine; PCP Internal Medicine
DX: R42 Dizziness and giddiness (principal); R11.2 Nausea with vomiting, unspecified
CPT/HCPCS: 36415; 70450; 70496; 70498; 80053; 84484; 85025; 93005; 99284; Q9967

== ENCOUNTER → 2020-12-02 13:04 | Outpatient (CLI) | payer MEDICARE, OTHER, SELFPAY ==
[2020-12-02 13:34] LABS: Hemoglobin A1C% w Est Avg Glu 7.1 % (4.0-6.0)
[2020-12-02 16:01] LABS: Creatinine Urine Random 175.1 mg/dL
[2020-12-04 16:52] LABS: Microalbumi Creatinin Ratio Ur 9.7 ug/mg CR (<30); Microalbumin Urine Random 1.7 mg/dL (0-1.6)
== END ==
PROVIDERS: PCP Internal Medicine; Referring Provider Internal Medicine; Visit Provider Internal Medicine
DX: E11.40 Type 2 diabetes mellitus with diabetic neuropathy, unspecified (principal)
CPT/HCPCS: 36415; 82043; 82570; 83036

== ENCOUNTER 2023-08-26 17:50 | Emergency (ER) | payer MEDICARE, OTHER, SELFPAY ==
[2023-08-26 18:25] VITALS: BP 126/68; PULSE 68; RESP 17; TEMP 36.6; O2SAT 97; BMI 24.4
--- NOTE | 2023-08-26 18:41 | ED_ITS ---
HPI - Neck Pain/Injury <Bello Menchaca PA-C - Last Filed: 08/26/23 18:53> General Chief Complaint: Neck Pain/Injury Stated Complaint: sore neck, says he might've hurt it Time Seen by Provider: 08/26/23 18:41 Mode of arrival: Ambulatory History of Present Illness HPI Narrative: This is a 77-year-old male presents to the emergency department due to right- sided trapezius pain. 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 Denies any numbness or tingling in his right upper extremity. Denies any acute injury to the area and no trauma to his back or neck area. He denies any slurred speech, facial drooping, vision changes, or any other concerning signs or symptoms. Has not spoken to his primary care provider about this. Related Data Home Medications Medication Instructions Recorded Confirmed atorvastatin 10 mg tablet 10 mg PO DAILY 09/13/19 08/26/23 tiotropium bromide 1.25 2 puff inhalation QAM 12/02/19 12/17/19 mcg/actuation mist for inhalation (Spiriva Respimat) Previous Rx's Medication Instructions Recorded metformin 500 mg tablet,extended See Rx Instructions PO SEE 02/06/18 release 24 hr (Glucophage XR) INSTRUCTIONS #90 tabs lisinopril 20 mg tablet 20 mg PO QDAY #90 tabs 03/05/18 oxycodone-acetaminophen 5 mg-325 See Rx Instructions .Route 12/02/19 mg tablet (Percocet) .COMPLEX PRN painful procedure #14 tabs cyclobenzaprine 10 mg tablet 10 mg PO TID PRN muscle spasm #30 08/26/23 tabs Allergies Allergy/AdvReac Type Severity Reaction Status Date / Time No Known Drug Allergies Allergy Verified 08/26/23 18:28 Review of Systems <Bello Menchaca PA-C - Last Filed: 08/26/23 18:53> Review of Systems Narrative: GENERAL: Denies chills, fatigue, malaise, fever, sweats. HEENT: Denies sinus pain, ear pain, sore throat, difficulty swallowing, dizziness. RESPIRATORY: Denies dyspnea, cough, wheezing, hemoptysis, sputum. CARDIOVASCULAR: Denies chest pain, palpitations, orthopnea, edema, GASTROINTESTINAL: Denies nausea, vomiting, abdominal pain, diarrhea, constipation, melena. : Denies dysuria, frequency, incontinence, hematuria, urinary retention. MUSCULOSKELETAL: Reports right trapezius pain, otherwise denies weakness, joint pain, or bony pain SKIN: Denies rash, skin lesions, or other NEUROLOGIC: Denies weakness, headache, numbness, change in speech, confusion, seizures, incoordination. PSYCHIATRIC: No concerning psychosocial issues. 12 point review of systems is negative except for those stated above Patient History <Bello Menchaca PA-C - Last Filed: 08/26/23 18:53> Medical History COPD (chronic obstructive pulmonary disease) Emphysema lung Essential hypertension (11/22/16) Former smoker History of detached retina repair (08/06/15) History of right cataract extraction (08/06/15) Mixed hyperlipidemia (11/22/16) Type 2 diabetes mellitus with hyperglycemia, without long-term current use of insulin (08/06/15) Surgical History History of bowel resection Family History Brother Diabetes mellitus Father Diabetes mellitus Social History marital status: household members: spouse Smoking Status: Former smoker alcohol intake: never Smoking Status: Former smoker alcohol intake frequency: holidays/special occasions only Substance Use Type: marijuana Exam <Bello Menchaca PA-C - Last Filed: 08/26/23 18:53> Narrative Exam Narrative: GENERAL: Well-developed patient, in mild distress. HEAD: Atraumatic. Normocephalic. EYES: Pupils equal round and reactive. Extraocular motions intact. No scleral icterus. No injection or drainage. ENT: Nose without bleeding, purulent drainage. Throat without erythema, tonsillar hypertrophy or exudate. Airway patent. NECK: Trachea midline. Non tender EXTREMITIES: Tenderness to palpation to the right trapezius. No significant changes in strength with shoulder range of motion. NEURO: AOx3. SKIN: No rash or erythema of visible areas Initial Vital Signs Initial Vital Signs: Vital Signs Temperature 98 F 08/26/23 18:25 Pulse Rate 68 08/26/23 18:25 Respiratory Rate 17 08/26/23 18:25 Blood Pressure 126/68 08/26/23 18:25 Pulse Oximetry 97 08/26/23 18:25 Oxygen Delivery Method Room Air 08/26/23 18:25 <DO Stefan Jacques Last Filed: 08/26/23 19:12> Initial Vital Signs Initial Vital Signs: Vital Signs Temperature 98 F 08/26/23 18:25 Pulse Rate 68 08/26/23 18:25 Respiratory Rate 17 08/26/23 18:25 Blood Pressure 126/68 08/26/23 18:25 Pulse Oximetry 97 08/26/23 18:25 Oxygen Delivery Method Room Air 08/26/23 18:25 Course <Bello Menchaca PA-C - Last Filed: 08/26/23 18:53> Orders Ordered: Discontinued Medications Ketorolac Tromethamine (Ketorolac 30 Mg/Ml Vial) 30 mg IM NOW ONE Stop: 08/26/23 19:02 Vital Signs Vital signs: Vital Signs - 8 hr 08/26/23 18:25 Temperature 98 F Pulse Rate 68 Respiratory Rate 17 Blood Pressure 126/68 Pulse Oximetry 97 Oxygen Delivery Method Room Air <DO Stefan Jacques Last Filed: 08/26/23 19:12> Orders Ordered: Discontinued Medications Ketorolac Tromethamine (Ketorolac 30 Mg/Ml Vial) 30 mg IM NOW ONE Stop: 08/26/23 19:02 Vital Signs Vital signs: Vital Signs - 8 hr 08/26/23 18:25 Temperature 98 F Pulse Rate 68 Respiratory Rate 17 Blood Pressure 126/68 Pulse Oximetry 97 Oxygen Delivery Method Room Air MDM - Neck Pain/Injury <NYDIA Meza Last Filed: 08/26/23 18:53> MDM Narrative Medical decision making narrative: ED course: This is a 77-year-old male presents emergency department due to suspected muscle strain of the right trapezius. He was not presenting with any bony tenderness and there was no trauma to the area no need for x-ray. It has also not describing any neurologic changes concerning for any kind of intracranial abnormality. Patient was given Toradol as well as prescription for muscle relaxants as well as recommendations for other supportive care. CC: Right trapezius pain Complicating co-morbidities: None Data collected from: Previous notes Medical records reviewed: Patient was last seen 3 years ago due to vertigo. History of COPD, hypertension, metformin. History of chronic neuropathy, hypertension, diabetes CT angio head and neck was taken at that time which showed no abnormalities. Differential considered, but not limited to: Fascia, muscle strain Exam documented above, pertinent findings include: This is to palpation to the right trapezius Lab Test results independently reviewed as above. Pertinent findings: None obtained Imaging studies independently reviewed: None obtained Scores Used: None MIPS Elements: None Consultations: None Treatments: IM Toradol Re-evaluations: None Discussion: Discussed plan with the patient was comfortable with the plan Diagnosis: Muscle strain Disposition: see below, along with detailed discharge instructions that have been reviewed with patient as well as indications for ED re-evaluation and additional outpatient follow up Discharge Plan Departure Patient Disposition: Home Clinical Impression: Muscle strain Instructions: DI for Neck Pain Activity Restrictions/Additional Instructions: Thank you for coming to the [facility] Emergency Department today. As we discussed suspect this is muscular in nature. The Toradol give me today should help as well as muscle relaxants. 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 I also recommend light massage as well as possibly speaking your primary care provider about referral to physical therapy if your symptoms continue. Warm compresses may help as well. Please return to the emergency department if you develop any vision changes, slurred speech, numbness or weakness in your right upper extremity, or any other concerning signs or symptoms. I hope you feel better soon. Please follow up with your primary care provider within a week if your symptoms continue. If you do not have a primary care provider please contact the [facility] Resource line at [phone]. They will ask some questions about your medical history and help you get set up with a provider in the community. Prescriptions: New cyclobenzaprine 10 mg tablet 10 mg PO TID PRN (Reason: muscle spasm) Qty: 30 0RF No Action metformin [Glucophage XR] 500 mg tablet extended release 24 hr See Rx Instructions PO SEE INSTRUCTIONS Qty: 90 2RF Dose Instruction: PO; PO SEE INSTRUCTIONS; Rx Instructions: Take 2 tablets by mouth with morning meal and 1 tablet by mouth with evening meal lisinopril 20 mg tablet 20 mg PO QDAY Qty: 90 0RF atorvastatin 10 mg tablet 10 mg PO DAILY Spiriva Respimat 1.25 mcg/actuation Mist 2 puff INHALATION QAM oxycodone-acetaminophen [Percocet] 5-325 mg tablet See Rx Instructions .ROUTE .COMPLEX PRN (Reason: painful procedure) Qty: 14 0RF Rx Instructions: Take 1 or 2 pills every 6 hours if needed for pain. May constipate. Referrals: Frida Dorman ARNP [Primary Care Provider] - Stand Alone Forms: Patient Portal/API ED Sign-out <Nicki Forte DO - Last Filed: 08/26/23 19:12> Cosign ED Attending Cosanitaature Attestation: I was immediately available in the department for consultation.
[2023-08-26] MEDS: KETOROLAC 30 MG/ML VIAL IM (19:13)
[2023-08-26 19:14] VITALS: BP 144/102; PULSE 72; RESP 16; O2SAT 96
== END 2023-08-26 19:16 | disposition home or self-care (01) ==
PROVIDERS: Emergency Provider Physician Assistant Medical; PCP Internal Medicine
DX: S16.1XXA Strain of muscle, fascia and tendon at neck level, initial encounter (principal); X58.XXXA Exposure to other specified factors, initial encounter
CPT/HCPCS: 96372; 99283; J1885

== ENCOUNTER → 2024-01-23 10:34 | Outpatient (ROUT) | payer MEDICARE, OTHER, SELFPAY ==
[2024-01-23 11:18] LABS: Influenza A - CEPHEID Flu A NEGATIVE (NEGATIVE); Influenza B - CEPHEID Flu B NEGATIVE (NEGATIVE); Respiratory Syncytial Virus Negative (Negative)
[2024-01-23 11:44] LABS: COVID-19 CEPHEID 4-PLEX PCR Negative (Negative)
== END ==
PROVIDERS: PCP Internal Medicine; Visit Provider Internal Medicine
DX: R05.9 Cough, unspecified (principal)
CPT/HCPCS: 0241U